=== PATIENT | female | born 1980 ===

== ENCOUNTER 2024-01-09 08:00 | Inpatient (IN) | payer OTHER ==
[~2024-01-09] VITALS: Ht 166.4 cm; Wt 115.7 kg
[2024-01-09] MEDS ORDERED: JARDIANCE25 MG PO (10:19)
[2024-01-09] MEDS ORDERED: ZESTRIL20 MG PO (10:19)
[2024-01-09] MEDS ORDERED: GLIMEPIRIDE2 MG (10:20)
[2024-01-09] MEDS ORDERED: ALDACTONE25 MG PO (10:20)
[2024-01-09] MEDS ORDERED: JENTADUETO 2.51 EAC2 PO (10:28)
[2024-01-15] MEDS ORDERED: CEFAZOLIN SODIUM 1,000 MG VIAL ONE (06:24)
[2024-01-15] MEDS ORDERED: CEFAZOLIN SODIUM 1,000 MG VIAL IV SCH ×2 (08:30→17:00)
[2024-01-15] MEDS ORDERED: PROMETHAZINE HCL 50 MG/ML AMPUL ONE (12:29)
[2024-01-15] MEDS ORDERED: DEXTROSE 5 % AND 0.9 % NACL 1,000 ML IV SCH (12:30)
[2024-01-15] MEDS ORDERED: RINGERS SOLUTION,LACTATED 1,000 ML IV SCH (12:30)
[2024-01-15] MEDS ORDERED: PROMETHAZINE HCL 50 MG/ML AMPUL IM SCH (13:00)
[2024-01-15] MEDS ORDERED: MEPERIDINE HCL/PF 50 MG/ML VIAL IM SCH (13:00)
[2024-01-15] MEDS ORDERED: MEPERIDINE HCL/PF 50 MG,MEPERIDINE HCL/PF 25 MG IM SCH (13:00)
[2024-01-15] MEDS ORDERED: ONDANSETRON HCL 2 MG/ML VIAL IV SCH (17:00)
[2024-01-16] MEDS ORDERED: OxyCODONE HCL/APAP UD (PERCOCET) PO SCH (09:00)
[2024-01-16] MEDS ORDERED: DOCUSATE CALCIUM 240 MG CAPSULE PO SCH (09:00)
[2024-01-16] MEDS ORDERED: SIMETHICONE 125 MG CAPSULE PO SCH (09:00)
[2024-01-16] MEDS ORDERED: IRON/V.C/V.B12/FOLIC A/VIT. E 1 CAPL CAPLET PO SCH (09:00)
== END 2024-01-17 13:03 | disposition home or self-care (01) | DRG 743 ==
LOC: O/R 01-15 05:06 → OB/GYN 01-15 05:06
PROVIDERS: ADMIT Obstetrics & Gynecology; ATTEND Obstetrics & Gynecology
PROC: 0U900ZZ Drainage of Right Ovary, Open Approach (ICD-10-PCS; 2024-01-15)
PROC: 0UB90ZZ Excision of Uterus, Open Approach (ICD-10-PCS; principal; 2024-01-15 07:00)
DX: N85.01 Benign endometrial hyperplasia (principal); Z20.822 Contact with and (suspected) exposure to COVID-19

== ENCOUNTER 2025-05-06 09:58 | Inpatient (IN) | payer OTHER ==
[~2025-05-06] VITALS: Ht 167.6 cm; Wt 88.0 kg
[~2025-05-06 09:58] MED LIST: ALDACTONE25 MG PO; GLIMEPIRIDE2 MG; JARDIANCE25 MG PO; JENTADUETO 2.51 EAC2 PO; ZESTRIL20 MG PO
[2025-05-06] MEDS ORDERED: MULTI-VITAMIN1 EACH PO (11:28)
[2025-05-06 11:29] VITALS: BP 128/85
[2025-05-06] MEDS ORDERED: FOLIC ACID0.8 M1 (11:29)
[2025-05-12] MEDS ORDERED: CEFAZOLIN SODIUM 1,000 MG VIAL ONE ×2 (08:17→08:27)
[2025-05-12] MEDS ORDERED: POVIDONE-IODINE 118 ML BOTT TOP ONE (10:15)
[2025-05-12] MEDS ORDERED: HEMOSTATIC MATRIX 1 KIT KIT TOP ONE ×2 (11:05→11:15)
[2025-05-12] MEDS ORDERED: SUGAMMADEX SODIUM 200 MG/2 ML VIAL IV ONE (11:24)
[2025-05-12] MEDS ORDERED: MORPHINE SULFATE 4 MG/ML VIAL IV ONE (12:15)
[2025-05-12] MEDS ORDERED: RINGERS SOLUTION,LACTATED 1,000 ML IV PUSH SCH (16:15)
[2025-05-12 16:16] VITALS: BP 123/83
[2025-05-12] MEDS ORDERED: MORPHINE SULFATE 4 MG/ML CARTRIDGE IV SCH (17:00)
[2025-05-12] MEDS ORDERED: MORPHINE SULFATE 2 MG/ML CARTRIDGE IV SCH ×2 (17:00)
[2025-05-12 20:00] VITALS: BP 113/76
[2025-05-12] MEDS ORDERED: ONDANSETRON HCL 2 MG/ML VIAL IV SCH (21:00)
[2025-05-12] MEDS ORDERED: CEFAZOLIN SODIUM 1,000 MG VIAL IV SCH (21:00)
[2025-05-13 01:17] VITALS: BP 112/73
[2025-05-13] MEDS ORDERED: KETOROLAC TROMETHAMINE 10 MG TABLET PO SCH (06:00)
[2025-05-13] MEDS ORDERED: ACETAMINOPHEN 500 MG GEL..CAP PO PRN (08:15)
[2025-05-13 08:44] VITALS: BP 102/66
[2025-05-13] MEDS ORDERED: DOCUSATE SODIUM 100MG CAP PO SCH (09:00)
[2025-05-13 16:00] VITALS: BP 106/72
[2025-05-14 00:57] VITALS: BP 103/64
[2025-05-14 09:31] VITALS: BP 109/73
== END 2025-05-14 10:57 | disposition home or self-care (01) | DRG 743 ==
LOC: O/R 05-12 05:20 → SURH 05-12 10:15 → OB/GYN 05-12 12:27 → SURH 05-12 12:30 → OB/GYN 05-14 10:57
PROVIDERS: ADMIT Obstetrics & Gynecology; ATTEND Obstetrics & Gynecology
PROC: 0UT90ZZ Resection of Uterus, Open Approach (ICD-10-PCS; principal; 2025-05-12 12:30)
DX: D25.9 Leiomyoma of uterus, unspecified (principal); N72 Inflammatory disease of cervix uteri; N80.203 Endometriosis of bilateral fallopian tubes, unspecified depth; D27.1 Benign neoplasm of left ovary; D27.0 Benign neoplasm of right ovary